=== PATIENT | female | born 1970 | race Caucasian/White ===

== ENCOUNTER → 2017-10-19 08:06 | Outpatient (CLI) | payer OTHER, SELFPAY ==
--- NOTE | 2017-10-19 | DI.MG.S_ITS ---
BILATERAL DIGITAL SCREENING MAMMOGRAM 3D/2D WITH CAD: 10/19/2017 CLINICAL: Routine screening. Comparison is made to exams dated: 08/04/2016 mammogram, 06/05/2014 mammogram, and 05/02/2013 mammogram - [facility]. The tissue of both breasts is heterogeneously dense. This may lower the sensitivity of mammography. Current study was also evaluated with a Computer Aided Detection (CAD) system. No significant masses, calcifications, or other findings are seen in either breast. There has been no significant interval change. IMPRESSION: NEGATIVE There is no mammographic evidence of malignancy. A 1 year screening mammogram is recommended. This exam was interpreted at Station ID: [id number]. NOTE: For mammograms, a report in lay terms will be sent to the patient. Approximately 15% of breast malignancies will not be visualized mammographically. In the management of a palpable breast mass, a negative mammogram must not discourage biopsy of a clinically suspicious lesion. Electronically Signed By: Cong temple/berna:10/19/2017 16:51:26 letter sent: Normal Exam ACR BI-RADS Category 1: Negative 3341F
== END ==
PROVIDERS: PCP Specialist; Visit Provider Specialist
DX: Z12.31 Encounter for screening mammogram for malignant neoplasm of breast (principal)
CPT/HCPCS: 77063; 77067

== ENCOUNTER → 2018-12-23 07:41 | Outpatient (CLI) | payer OTHER, SELFPAY ==
--- NOTE | 2018-12-23 | DI.MG.S_ITS ---
BILATERAL DIGITAL SCREENING MAMMOGRAM 3D/2D WITH CAD: 12/23/2018 CLINICAL: Routine screening. Comparison is made to exams dated: 10/19/2017 mammogram - [facility], 08/04/2016 mammogram, and 06/05/2014 mammogram - [facility]. There are scattered fibroglandular elements in both breasts. Current study was also evaluated with a Computer Aided Detection (CAD) system. No significant masses, calcifications, or other findings are seen in either breast. There has been no significant interval change. IMPRESSION: NEGATIVE There is no mammographic evidence of malignancy. A 1 year screening mammogram is recommended. This exam was interpreted at Station ID: [id number]. NOTE: For mammograms, a report in lay terms will be sent to the patient. Approximately 15% of breast malignancies will not be visualized mammographically. In the management of a palpable breast mass, a negative mammogram must not discourage biopsy of a clinically suspicious lesion. Electronically Signed By: Jayme devries/berna:12/23/2018 09:45:16 letter sent: Normal Exam ACR BI-RADS Category 1: Negative 3341F
== END ==
PROVIDERS: Visit Provider Specialist
DX: Z12.31 Encounter for screening mammogram for malignant neoplasm of breast (principal)
CPT/HCPCS: 77063; 77067

== ENCOUNTER → 2020-03-03 10:32 | Outpatient (CLI) | payer BC, OTHER, SELFPAY ==
--- NOTE | 2020-03-03 10:33 | DI.MG.S_ITS ---
BILATERAL DIGITAL SCREENING MAMMOGRAM 3D/2D WITH CAD: 03/03/2020 CLINICAL: Routine screening. Comparison is made to exams dated: 12/23/2018 mammogram, 10/19/2017 mammogram - [facility], and 08/04/2016 mammogram - [facility]. There are scattered fibroglandular elements in both breasts. Current study was also evaluated with a Computer Aided Detection (CAD) system. No significant masses, calcifications, or other findings are seen in either breast. There has been no significant interval change. IMPRESSION: NEGATIVE There is no mammographic evidence of malignancy. A 1 year screening mammogram is recommended. This exam was interpreted at Station ID: [id number]. NOTE: For mammograms, a report in lay terms will be sent to the patient. Approximately 15% of breast malignancies will not be visualized mammographically. In the management of a palpable breast mass, a negative mammogram must not discourage biopsy of a clinically suspicious lesion. Electronically Signed By: Andrei knowles/berna:03/05/2020 10:08:28 letter sent: Normal Exam ACR BI-RADS Category 1: Negative 3341F
== END ==
PROVIDERS: PCP Specialist; Referring Provider Specialist; Visit Provider Specialist
DX: Z12.31 Encounter for screening mammogram for malignant neoplasm of breast (principal)
CPT/HCPCS: 77063; 77067

== ENCOUNTER → 2021-07-08 14:44 | Outpatient (CLI) | payer OTHER, SELFPAY ==
--- NOTE | 2021-07-08 | DI.MG.S_ITS ---
BILATERAL DIGITAL SCREENING MAMMOGRAM 3D/2D WITH CAD: 07/08/2021 CLINICAL: Routine screening. Comparison is made to exams dated: 03/03/2020 mammogram, 12/23/2018 mammogram, and 10/19/2017 mammogram - [facility]. There are scattered fibroglandular elements in both breasts. Current study was also evaluated with a Computer Aided Detection (CAD) system. No significant masses, calcifications, or other findings are seen in either breast. There has been no significant interval change. IMPRESSION: NEGATIVE There is no mammographic evidence of malignancy. A 1 year screening mammogram is recommended. This exam was interpreted at Station ID: [id number]. NOTE: For mammograms, a report in lay terms will be sent to the patient. Approximately 15% of breast malignancies will not be visualized mammographically. In the management of a palpable breast mass, a negative mammogram must not discourage biopsy of a clinically suspicious lesion. Electronically Signed By: Jayme witt/berna:07/09/2021 09:27:35 letter sent: Normal Exam ACR BI-RADS Category 1: Negative 3341F
== END ==
PROVIDERS: Referring Provider Specialist; Visit Provider Specialist
DX: Z12.31 Encounter for screening mammogram for malignant neoplasm of breast (principal)
CPT/HCPCS: 77063; 77067

== ENCOUNTER → 2021-09-06 10:04 | Outpatient (CLI) | payer OTHER, SELFPAY ==
[2021-09-06 13:04] LABS: COVID19 -Nasal RAPID Negative (Negative)
== END ==
PROVIDERS: Visit Provider Family Medicine Sleep Medicine
DX: Z20.822 Contact with and (suspected) exposure to COVID-19 (principal)
CPT/HCPCS: 87635; C9803

== ENCOUNTER 2021-09-09 08:24 | Day surgery (SDC) | payer OTHER, SELFPAY ==
--- NOTE | 2021-09-09 | PATH_ITS ---
[facility] Accession Number: [id number] . 01 Material submitted: . PART A: colon - ASCENDING COLON PART B: colon - ASCENDING COLON POLYP PART C: colon - TRANSVERSE COLON PART D: colon - DESCENDING COLON PART E: sigmoid colon - SIGMOID COLON PART F: rectum - RECTUM . 02 Diagnosis: A. Ascending Colon, Biopsy: Minimal crypt architectural distortion. No significant neutrophilic activity identified. Negative for dysplasia or malignancy. . B. Ascending Colon Polyp: Portions of tubular adenoma x2. . C. Transverse Colon, Biopsies: Minimal crypt architectural distortion. No significant neutrophilic activity identified. Negative for dysplasia or malignancy. . D. Descending Colon: Minimal crypt architectural distortion. No significant neutrophilic activity identified. Negative for dysplasia or malignancy. . E. Sigmoid Colon: Minimal crypt architectural distortion. No significant neutrophilic activity identified. Negative for dysplasia or malignancy. . F. Rectum: Moderate crypt architectural distortion. Moderate neutrophilic activity and patchy regions of ulceration present. Negative for dysplasia or malignancy. [facility] 09/12/2021 1702 Local . 02 Electronically signed: . Josseline Blackwell MD, Pathologist NPI- [id number] . 01 Gross description: . Part A: ASCENDING COLON: Received in formalin is 1 fragment(s) of camacho, soft tissue measuring 0.3 x 0.2 x 0.1 cm submitted entirely in 1 cassette(s) Part B: ASCENDING COLON POLYP: Received in formalin is 2 fragment(s) of camacho, soft tissue measuring 0.3 x 0.2 x 0.1 cm to 0.2 x 0.2 x 0.1 cm submitted entirely in 1 cassette(s) Part C: TRANSVERSE COLON: Received in formalin is 2 fragment(s) of camacho, soft tissue measuring 0.4 x 0.2 x 0.1 cm to 0.3 x 0.2 x 0.2 cm submitted entirely in 1 cassette(s) Part D: DESCENDING COLON: Received in formalin is 1 fragment(s) of camacho, soft tissue measuring 0.3 x 0.1 x 0.1 cm submitted entirely in 1 cassette(s) Part E: SIGMOID COLON: Received in formalin is 1 fragment(s) of camacho, soft tissue measuring 0.2 x 0.2 x 0.1 cm submitted entirely in 1 cassette(s) Part F: RECTUM: Received in formalin are 3 fragment(s) of camacho, soft tissue measuring 0.3 x 0.3 x 0.2 cm to 0.2 x 0.1 x 0.1 cm submitted entirely in 1 cassette(s) /[facility] [place] 09/10/2021 0918 Local . 02 Pathologist provided ICD-10: K51.90, Z86.010 . 02 CPT . 559540, 369421, 311676, 883403, 661660, 074740 Specimen Comment: A courtesy copy of this report has been sent to [phone] Performed at: 01 [facility] [address] [place] [address], [place], [place] [id number] MD Max Melgar MD Phone: [phone] Performed at: 02 [facility] [address] [place], [place] [id number] MD Lyn Flower MD Phone: [phone]
[2021-09-09 08:51] VITALS: BP 134/91; PULSE 73; RESP 17; TEMP 37; O2SAT 100
--- NOTE | 2021-09-09 08:56 | PM.HP.1 ---
History of Present Illness History of Present Illness Date Patient Seen: 09/09/21 Time Patient Seen: 08:56 Chief complaint: SDC Narrative: I reviewed my office note from July 23, 2021. Skin lesions are a little improved overall. However with the stress of bowel prepping for this she has had a slight exacerbation in the left leg left arm area. Bowels remain relatively normal without symptoms of active UC. She is on 2.4 g of mesalamine daily. Patient History Medical History Colitis Menstrual migraine Surgical History History of colonoscopy with polypectomy Family & Social History Family History Father Age: 74 Hypertension High cholesterol Heart attack Grandfather Parkinson's disease Grandmother Age: 96 Diabetes mellitus Hypertension High cholesterol Mother Age: 69 Hypertension Tobacco & Substance use: Smoking Status Never smoker Meds Home Medications and Allergies Home Medications Medication Instructions Recorded Confirmed Type estradiol 2 mg tablet See Rx Instructions .ROUTE 11/22/20 05/30/21 Rx .COMPLEX #60 tablet norgestimate 0.25 mg-ethinyl See Rx Instructions .ROUTE 05/06/21 05/30/21 Rx estradiol 35 mcg tablet (Sprintec .COMPLEX #112 tab (28)) clobetasol 09/09/21 History hydrochlorothiazide 25 mg tablet 25 mg PO DAILY 09/09/21 09/09/21 History mesalamine 09/09/21 History norgestimate 0.25 mg-ethinyl tab 09/09/21 History estradiol 35 mcg tablet (Sprintec (28)) Allergies Allergy/AdvReac Type Severity Reaction Status Date / Time Penicillins [PENICILLINS] Allergy Intermediate flu-like Verified 09/09/21 08:43 symptoms, N&V latex Allergy Unknown Verified 09/09/21 08:48 Review of Systems Review of Systems ROS: Yes All systems reviewed with the patient and are negative except as otherwise documented Exam Vital Signs (past 8 hours): - 09/09/21 08:51 Temperature 98.6 F Pulse Rate 73 Respiratory Rate 17 Blood Pressure 134/91 H Pulse Oximetry 100 Oxygen Delivery Method Room Air Const General: cooperative and comfortable Orientation: alert HENMT Head: normocephalic Ears: external ears normal Nose: external nose normal Face and sinus: normal facial exam Mouth: oral mucosae normal Eyes General: appearance normal, both eyes and all related structures Neck Neck: normal visual inspection Chest Chest: normal inspection of the chest Resp Effort & Inspection: normal respiratory effort Cardio Rate: regular rate GI Inspection: normal to inspection Skin General: No jaundice Neuro General: patient alert and moves all extremities Cognition: normal cognition Speech: speech normal Extrem General: no pedal edema Psych Appearance: grossly normal Assessment & Plan Assessment & Plan narrative: 51-year-old female with ulcerative colitis. Surveillance colonoscopy is indicated today. She did show a leak has a personal history of adenomatous colon polyps. Time Spent With Patient Critical Care time: I spent a total of [] minutes of critical care time on this patient's care today; this time is exclusive of procedural time.
--- NOTE | 2021-09-09 09:00 | PM.PREOP ---
Pre-operative Note COVID-19 COVID-19 status: Negative Result date/Date tested (Pos, Neg/Pending): 09/06/21 Criteria for continued procedure: Possibility delay results in more complex future surgery or treatment Interval Note History & Physical reviewed/Exam performed by Physician: Yes Changes to H&P: Yes ASA Class (for procedural sedation): II
[2021-09-09] MEDS: SODIUM CHLORIDE 0.9% 1,000 ML 150 ML IV (09:20)
[2021-09-09 09:22] VITALS: BMI 29.1
--- NOTE | 2021-09-09 10:02 | PM.OP.COLON ---
Operative Date/Time/Diagnoses Date of procedure: 09/09/21 Time of procedure: 10:02 Pre-op diagnosis: Ulcerative colitis history and personal history of colon polyps Post-op diagnosis: same Procedure & Clinicians Study performed: Colonoscopy with cold forceps polypectomy and segmental biopsies Same procedure as scheduled: Yes Indications: Ulcerative colitis and colon polyp history Surgeon: Ortiz Mireles Procedure Notes SCOAP/Timeout: Done Procedure in detail: After the risks and benefits were explained, written and verbal informed consent was obtained. The patient was brought into the procedure room and placed into the left lateral decubitus position. Please see nurse council on aging director notes for sedation details. Digital rectal examination was accomplished. The scope was introduced into the patient and advanced under direct visualization to the cecum as identified by the appendiceal orifice and ileocecal valve. The scope was slowly withdrawn to carefully examine the mucosa for any defects or lesions. Comprehensive imaging was accomplished throughout the rectum including the dentate line. The colon was decompressed, the scope was then removed from the patient who tolerated the procedure well. Adult colonoscope Bowel prep adequate Scope withdrawal time: 16 minutes Sedation minutes: 27 Complications: none Impression: There was a cuff of inflammation in the distal rectum perhaps 1-2 cm circumferentially from the dentate line. This was the area to targeted in the rectal biopsies segment. Otherwise the rectum appeared normal and there was no evidence of macroscopic colitis anywhere else throughout the colon. There was some scant scarring affects in the ascending colon consistent with prior inflammation. Segmental biopsies were taken from the ascending, transverse, descending, sigmoid, and rectum and submitted separately. The terminal ileum was interrogated and appeared normal. There was a diminutive polyp in the distal ascending colon removed with cold forceps. Endoscopic diagnosis 1. Diminutive colon polyp 2. Mild proctitis 3. Otherwise no active disease Post-procedure Plan for aftercare: 1. Await histopathology. 2. Continue mesalamine. 3. Follow up GI clinic within the next 4 weeks or so. Disposition: PACU
[2021-09-09 10:06] VITALS: BP 102/66; PULSE 75; RESP 16; TEMP 36.2; O2SAT 100
[2021-09-09 10:09] VITALS: BP 116/79; PULSE 73; RESP 16; O2SAT 98
[2021-09-09 10:13] VITALS: BP 122/83; PULSE 78; RESP 16; O2SAT 100
[2021-09-09 10:19] VITALS: BP 136/83; PULSE 72; RESP 15; O2SAT 94
== END 2021-09-09 10:27 | disposition home or self-care (01) ==
PROVIDERS: Referring Provider Internal Medicine Gastroenterology; Visit Provider Internal Medicine Gastroenterology
PROC: 0DJD8ZZ Inspection of Lower Intestinal Tract, Via Natural or Artificial Opening Endoscopic (ICD-10-PCS; CPT 45378; principal; 2021-09-09 10:00)
DX: Z12.11 Encounter for screening for malignant neoplasm of colon (principal); Z86.010 Personal history of colon polyps; K51.90 Ulcerative colitis, unspecified, without complications; K62.89 Other specified diseases of anus and rectum; D12.2 Benign neoplasm of ascending colon
CPT/HCPCS: 45380; 81025; J2704

== ENCOUNTER → 2023-05-16 10:06 | Outpatient (CLI) | payer OTHER, SELFPAY ==
--- NOTE | 2023-05-16 | DI.MG.S_ITS ---
BILATERAL DIGITAL SCREENING MAMMOGRAM 3D/2D WITH CAD: 05/16/2023 CLINICAL: Routine screening. Comparison is made to exams dated: 07/08/2021 mammogram, 03/03/2020 mammogram, and 12/23/2018 mammogram - [facility]. There are scattered areas of fibroglandular density in both breasts (category b / 25%-50% glandular tissue). Current study was also evaluated with a Computer Aided Detection (CAD) system. No significant masses, calcifications, or other findings are seen in either breast. There has been no significant interval change. IMPRESSION: NEGATIVE There is no mammographic evidence of malignancy. A 1 year screening mammogram is recommended. Based on the Tyrer Cuzick model (a risk assessment model) the patient's lifetime risk is 8.0% and her 10 year risk is 1.8%. According to the ACR, ACS, and NCCN guidelines, an annual breast MRI exam along with mammogram is recommended if the patient's lifetime risk is 20% or greater. This exam was interpreted at Station ID: [id number]. NOTE: For mammograms, a report in lay terms will be sent to the patient. Approximately 15% of breast malignancies will not be visualized mammographically. In the management of a palpable breast mass, a negative mammogram must not discourage biopsy of a clinically suspicious lesion. Electronically Signed By: Jayme devries/berna:05/19/2023 07:53:07 letter sent: Normal Exam ACR BI-RADS Category 1: Negative 3341F
== END ==
PROVIDERS: Referring Provider Specialist; Visit Provider Specialist
DX: Z12.31 Encounter for screening mammogram for malignant neoplasm of breast (principal)
CPT/HCPCS: 77063; 77067

== ENCOUNTER → 2024-07-15 08:15 | Outpatient (CLI) | payer OTHER, SELFPAY ==
--- NOTE | 2024-07-15 08:20 | DI.MG.S_ITS ---
BILATERAL DIGITAL SCREENING MAMMOGRAM 3D/2D WITH CAD: 07/15/2024 CLINICAL: Routine screening. Comparison is made to exams dated: 05/16/2023 mammogram, 07/08/2021 mammogram, 03/03/2020 mammogram, and 12/23/2018 mammogram - [facility]. There are scattered areas of fibroglandular density (category b / 25%-50% glandular tissue). Current study was also evaluated with a Computer Aided Detection (CAD) system. There is a focal asymmetry in the right breast at 3 o'clock anterior depth. This is more prominent. No other significant masses, calcifications, or other findings are seen in either breast. IMPRESSION: INCOMPLETE: NEED ADDITIONAL IMAGING EVALUATION The focal asymmetry in the right breast is indeterminate. Additional views with possible ultrasound are recommended. Based on the Tyrer Cuzick model (a risk assessment model) the patient's lifetime risk is 7.9% and her 10 year risk is 1.9%. According to the ACR, ACS, and NCCN guidelines, an annual breast MRI exam along with mammogram is recommended if the patient's lifetime risk is 20% or greater. This exam was interpreted at Station ID: [id number]. NOTE: For mammograms, a report in lay terms will be sent to the patient. Approximately 15% of breast malignancies will not be visualized mammographically. In the management of a palpable breast mass, a negative mammogram must not discourage biopsy of a clinically suspicious lesion. Electronically Signed By: Blue Dodson M.D. [facility]/:07/15/2024 12:30:47 letter sent: Additional Imaging Needed ACR BI-RADS Category 0: Incomplete: Need Additional Imaging Evaluation
== END ==
PROVIDERS: Visit Provider Physician Assistant Medical
DX: Z12.31 Encounter for screening mammogram for malignant neoplasm of breast (principal)
CPT/HCPCS: 77063; 77067

== ENCOUNTER → 2024-08-19 08:28 | Outpatient (CLI) | payer OTHER, SELFPAY ==
--- NOTE | 2024-08-19 08:29 | DI.US.S_ITS ---
MM diagnostic mammo unilat RT, US breast RT limited: 08/19/2024 BI-RADS: 3 CLINICAL: 54-year old female for right diagnostic mammogram and right diagnostic breast ultrasound. The patient presents for additional evaluation of an inconclusive screening mammogram - focal asymmetry. Tyrer-Cuzick lifetime risk of 9.3%. No personal or first-degree family history of breast cancer. PRIOR EXAMS 05/16/2023, 07/08/2021, 03/03/2020, 12/23/2018, 10/19/2017, 08/04/2016. MAMMOGRAPHY TECHNIQUE: 2D and 3D (tomosynthesis) digital mammographic views obtained, with additional images as needed for full coverage. Current study was also evaluated with a Computer Aided Detection (CAD) system. ULTRASOUND TECHNIQUE TARGETED Right Breast Ultrasound: Real-time ultrasound exam was performed focused to area of clinical and/or imaging concern. DENSITY Right: B. There are scattered areas of fibroglandular density. MAMMOGRAPHY FINDINGS Right: Inner at 3:00, Middle depth, measuring 0.6 cm: There is a focal asymmetry present. This finding appears less conspicuous on the CC spot compression views and may represent prominent fibroglandular tissue. ULTRASOUND FINDINGS Right: Inner at 3:00, Retroareolar: There is no suspicious sonographic finding to account for imaging concern on mammography. IMPRESSION: Right (Asymmetry): Inner at 3:00, Middle depth, measuring 0.6 cm * Probably Benign. RECOMMENDATIONS Right: Inner at 3:00, Middle depth * Six month followup with diagnostic mammography. COMMENTS: Findings and recommendations were conveyed to the patient during today's evaluation. OVERALL ASSESSMENT CATEGORY BI-RADS-3: Probably Benign. ELECTRONICALLY SIGNED: La Callejas M.D. on 08/19/2024 at 09:58:44 AM PT Interpreting Station ID: [id number]
== END ==
PROVIDERS: Referring Provider Obstetrics & Gynecology; Visit Provider Obstetrics & Gynecology
DX: R92.8 Other abnormal and inconclusive findings on diagnostic imaging of breast (principal); N64.89 Other specified disorders of breast; R92.321 Mammographic fibroglandular density, right breast
CPT/HCPCS: 76642; 77065; G0279

== ENCOUNTER → 2025-03-03 08:33 | Outpatient (CLI) | payer OTHER, SELFPAY ==
--- NOTE | 2025-03-03 08:38 | DI.MG.S_ITS ---
MM diagnostic mammo unilat RT: 03/03/2025. BI-RADS: 4 CLINICAL: 54-year old female for right diagnostic mammogram that is a follow-up to diagnostic mammogram on 08/19/2024. Tyrer-Cuzick lifetime risk of 9.3%. No personal or first-degree family history of breast cancer. PRIOR EXAMS 08/19/2024, 07/15/2024, 05/16/2023. MAMMOGRAPHY TECHNIQUE: 2D and 3D (tomosynthesis) digital mammographic views obtained, with additional images as needed for full coverage. Current study was also evaluated with a Computer Aided Detection (CAD) system. DENSITY Right: B. There are scattered areas of fibroglandular density. MAMMOGRAPHY FINDINGS Right: Inner at 3:00, Middle depth, measuring 0.6cm: Correlating with prior imaging concern, there is a focal asymmetry present. There is new associated architectural distortion. No sonographic correlate was identified on the previous ultrasound. IMPRESSION: Right (Asymmetry): Inner at 3:00, Middle depth, measuring 0.6cm * Suspicious findings with likelihood of malignancy. RECOMMENDATIONS Right: Inner at 3:00, Middle depth * Stereotactic-guided biopsy for further evaluation. COMMENTS: Findings and recommendations were conveyed to the patient during today's evaluation by Dr. Goodwin. OVERALL ASSESSMENT CATEGORY BI-RADS-4: Suspicious. ELECTRONICALLY SIGNED: La Callejas M.D. on 03/03/2025 at 09:59:58 AM PT Interpreting Station ID: [id number]
== END ==
PROVIDERS: PCP Physician Assistant Medical; Referring Provider Physician Assistant Medical; Visit Provider Physician Assistant Medical
DX: R92.8 Other abnormal and inconclusive findings on diagnostic imaging of breast (principal)
CPT/HCPCS: 77065; G0279